=== PATIENT | female | born 1995 | race Caucasian/White ===

== ENCOUNTER 2018-03-03 00:32 | Emergency (ER) | payer OTHER ==
[2018-03-03] MEDS: IBUPROFEN 600 MG TAB PO (02:58)
== END 2018-03-03 03:30 | disposition home or self-care (01) ==
LOC: FTE 00:32
DX: S93.401A Sprain of unspecified ligament of right ankle, initial encounter (principal); F17.210 Nicotine dependence, cigarettes, uncomplicated; X50.1XXA Overexertion from prolonged static or awkward postures, initial encounter; Y92.9 Unspecified place or not applicable
CPT/HCPCS: 99282; Z7502